=== PATIENT | male | born 1985 | race Caucasian/White ===

== ENCOUNTER 2016-08-21 13:37 | Emergency (ER) | payer OTHER | END 2016-08-21 16:50 | disposition home or self-care (01) | LOC: ER1 13:37 | DX: S16.1XXA Strain of muscle, fascia and tendon at neck level, initial encounter (principal); I10 Essential (primary) hypertension; F17.210 Nicotine dependence, cigarettes, uncomplicated; Z88.5 Allergy status to narcotic agent; Z79.899 Other long term (current) drug therapy; V43.52XA Car driver injured in collision with other type car in traffic accident, initial encounter; Y93.89 Activity, other specified; Y92.410 Unspecified street and highway as the place of occurrence of the external cause | CPT/HCPCS: 70450; 71020; 72125; 99284 ==

== ENCOUNTER 2016-10-02 20:04 | Emergency (ER) | payer OTHER ==
[2016-10-02 23:51] LABS: HEMOGLOBIN 15.7 gm/dl (14.0-17.5); RED BLOOD COUNT 5.11 M/UL (4.20-5.50)
[2016-10-03 00:15] LABS: BUN/CREATININE RATIO 19 (0-10)
== END 2016-10-03 02:53 | disposition home or self-care (01) ==
LOC: ER1 20:04
PROVIDERS: Emergency Medicine
DX: R51 Headache (principal); R07.9 Chest pain, unspecified; R20.0 Anesthesia of skin; R11.10 Vomiting, unspecified; I10 Essential (primary) hypertension; F17.200 Nicotine dependence, unspecified, uncomplicated; Z79.899 Other long term (current) drug therapy
CPT/HCPCS: 36415; 70450; 71010; 80053; 82550; 82553; 83874; 84484; 85025; 85379; 93005; 99285

== ENCOUNTER 2021-02-17 15:10 | Emergency (ER) | payer OTHER ==
[~2021-02-17 15:10] MED LIST: AMLODIPINE BESY10 MG PO; ASPIRIN CHEWABL81 MG PO; ELIMITE 5% CREA60 GM TOP; KEFLEX CAP 500500 MG PO; MUCINEX600 MG PO; NAPROSYN500 MG PO; NORCO 5-325 TA1 EACH PO; PERCOCET 5-3251 EACH PO; PERCOCET 5/325 T1 EA PO; PREDNISONE 50 M50 MG PO; TESSALON PERLE100 MG PO; VENTOLIN HFA 66.7 GM INH; ZITHROMAX250 MG PO; ZOFRAN ODT 4 MG4 MG PO
[2021-02-17] MEDS ORDERED: BACTRIM DS TAB1 EACH PO (17:02)
== END 2021-02-17 17:27 | disposition home or self-care (01) ==
LOC: ER1 15:10
DX: L02.212 Cutaneous abscess of back [any part, except buttock and flank] (principal); Z88.5 Allergy status to narcotic agent
CPT/HCPCS: 99282

== ENCOUNTER 2021-02-25 10:56 | Emergency (ER) | payer OTHER ==
[~2021-02-25 10:56] MED LIST changes: +BACTRIM DS TAB1 EACH PO
[2021-02-25 12:07] LABS: HEMOGLOBIN 16.7 gm/dl (14.0-17.5); RED BLOOD COUNT 5.35 M/UL (4.20-5.50); WHITE BLOOD COUNT 5.8 K/UL (4.5-11.0)
[2021-02-25 12:41] LABS: BUN/CREATININE RATIO 13 (0-10)
== END 2021-02-25 16:02 | disposition home or self-care (01) ==
LOC: ER1 10:56
PROVIDERS: Nurse Practitioner
DX: R91.1 Solitary pulmonary nodule (principal); R00.0 Tachycardia, unspecified; J44.9 Chronic obstructive pulmonary disease, unspecified; Z86.73 Personal history of transient ischemic attack (TIA), and cerebral infarction without residual deficits; Z20.822 Contact with and (suspected) exposure to COVID-19; Z88.5 Allergy status to narcotic agent
CPT/HCPCS: 36600; 71045; 80053; 81001; 82550; 82553; 82728; 82803; 83605; 83874; 84484; 85025; 85379; 85610; 86140; 87040; 93005; 99285; Q9967; U0002

== ENCOUNTER 2021-05-02 23:06 | Emergency (ER) | payer OTHER | END 2021-05-03 05:43 | disposition home or self-care (01) | LOC: ER1 23:06 | DX: F32.A Depression, unspecified (principal); W45.8XXA Other foreign body or object entering through skin, initial encounter | CPT/HCPCS: 99283 ==

== ENCOUNTER 2021-07-23 12:58 | Emergency (ER) | payer OTHER | END 2021-07-23 14:52 | disposition home or self-care (01) | LOC: ER1 12:58 | DX: S49.92XA Unspecified injury of left shoulder and upper arm, initial encounter (principal); F17.200 Nicotine dependence, unspecified, uncomplicated; Z88.5 Allergy status to narcotic agent; W19.XXXA Unspecified fall, initial encounter; Y92.89 Other specified places as the place of occurrence of the external cause; Y99.0 Civilian activity done for income or pay | CPT/HCPCS: 73060; 99283 ==

== ENCOUNTER 2021-07-29 14:34 | Emergency (ER) | payer OTHER ==
[2021-07-29] MEDS ORDERED: DOXYCYCLINE HY100 MG PO (15:53)
[2021-07-29] MEDS ORDERED: IBUPROFEN600 MG PO (15:53)
[2021-07-29] MEDS ORDERED: BACTROBAN OINT22 GM EXT (15:53)
== END 2021-07-29 16:55 | disposition home or self-care (01) ==
LOC: ER1 14:34
DX: N48.22 Cellulitis of corpus cavernosum and penis (principal); F17.200 Nicotine dependence, unspecified, uncomplicated; Z88.5 Allergy status to narcotic agent
CPT/HCPCS: 96372; 99283; J0696

== ENCOUNTER 2021-10-09 08:24 | Emergency (ER) | payer OTHER ==
[~2021-10-09 08:24] MED LIST changes: +BACTROBAN OINT22 GM EXT; +DOXYCYCLINE HY100 MG PO; +IBUPROFEN600 MG PO
[2021-10-09] MEDS ORDERED: LOTRIMIN AF TP (09:12)
== END 2021-10-09 09:30 | disposition home or self-care (01) ==
LOC: ER1 08:24
DX: B35.3 Tinea pedis (principal)
CPT/HCPCS: 99283

== ENCOUNTER 2021-11-29 19:57 | Emergency (ER) | payer OTHER ==
[~2021-11-29 19:57] MED LIST changes: +LOTRIMIN AF TP
== END 2021-11-29 22:53 | disposition left against medical advice (07) ==
LOC: ER1 19:57
DX: Z53.21 Procedure and treatment not carried out due to patient leaving prior to being seen by health care provider (principal)
CPT/HCPCS: 87081; 87880